=== PATIENT | male | born 1985 | race African-American/Black ===

== ENCOUNTER 2018-03-02 10:05 | Emergency (ER) | payer OTHER ==
[~2018-03-02] VITALS: Ht 185.4 cm; Wt 129.3 kg
[~2018-03-02 10:05] MED LIST: AZIT250T PO; METH4TAB2 PO
[2018-03-02 10:37] VITALS: BP 141/83
[2018-03-02] MEDS ORDERED: ALBUTEROL SULFATE 2.5 MG/3 ML NEBU. CONT NEB ONE (11:00)
[2018-03-02] MEDS ORDERED: predniSONE 10 MG TABLET PO ONE (11:00)
[2018-03-02] MEDS ORDERED: PRED50TA PO (11:02)
--- NOTE | 2018-03-02 11:02 | PHYS DOC ---
Past Medical History Past Medical History: Asthma Past Surgical History: No Surgical History Alcohol Use: Rarely Drug Use: None Adult General Chief Complaint Chief Complaint: ASTHMA HPI HPI Patient is a 32 year old male who presents to the emergency room with chief complaint of asthma. He is short of breath he has been so for the last 2 days he thinks the trigger his recent URI his boss was sick and now he has a sore throat and runny nose. last hospitalization 1 year ago never intubated Review of Systems Review of Systems Constitutional: Eyes: Denies change in visual acuity, redness, or eye pain [] HENT: Respiratory: Cardiovascular: No additional information not addressed in HPI [] GI: Denies abdominal pain, nausea, vomiting, bloody stools or diarrhea [] Musculoskeletal: Denies back pain or joint pain [] Integument: Denies rash or skin lesions [] Neurologic: Denies headache, focal weakness or sensory changes [] Endocrine: Denies polyuria or polydipsia [] All other systems were reviewed and found to be within normal limits, except as documented in this note. Current Medications Current Medications Current Medications Medications (Trade) Dose Ordered Sig/Harshad Start Time Stop Time Status Last Admin Dose Admin Albuterol Sulfate (Ventolin Neb Soln) 10 mg 1X ONCE 03/02/18 11:00 03/02/18 11:01 DC Albuterol/ Ipratropium (Duoneb) 3 ml 1X ONCE 03/02/18 11:30 03/02/18 11:31 DC 03/02/18 11:30 3 ML Prednisone (Prednisone) 50 mg 1X ONCE 03/02/18 11:00 03/02/18 11:01 DC 03/02/18 10:56 50 MG Allergies Allergies Allergies Coded Allergies Type Severity Reaction Last Updated Verified No Known Drug Allergies 02/11/18 No Physical Exam Physical Exam Constitutional: Well developed, well nourished, no acute distress, non-toxic appearance. [] HENT: Normocephalic, atraumatic, bilateral external ears normal, oropharynx moist, no oral exudates, nose normal. [] Eyes: PERRLA, EOMI, conjunctiva normal, no discharge. [] Neck: Normal range of motion, no tenderness, supple, no stridor. [] Cardiovascular:Heart rate regular rhythm, no murmur [] Lungs & Thorax: wheezing, speaking full sentences mild increase in resp effort. Abdomen: Bowel sounds normal, soft, no tenderness, no masses, no pulsatile masses. [] Skin: Warm, dry, no erythema, no rash. [] Back: No tenderness, no CVA tenderness. [] Extremities: No tenderness, no cyanosis, no clubbing, ROM intact, no edema. [] Neurologic: Alert and oriented X 3, normal motor function, normal sensory function, no focal deficits noted. [] Psychologic: Affect normal, judgement normal, mood normal. [] Current Patient Data Vital Signs Vital Signs Date Time Temp Pulse Resp B/P (MAP) Pulse Ox O2 Delivery O2 Flow Rate FiO2 03/02/18 11:30 Room Air 03/02/18 10:37 98.6 93 18 141/83 (102) 94 98.6 EKG EKG [] Radiology/Procedures Radiology/Procedures [] Impressions: MPRESSION: No acute cardiopulmonary process. Electronically signed by: Kallie Muir MD (03/02/2018 11:06 AM) [id number] Course & Med Decision Making Course & Med Decision Making Pertinent Labs and Imaging studies reviewed. (See chart for details) []asthma albuterol prednisone cxr pt is feeling better in the ER. wheeizng improved return precautions discussed Dragon Disclaimer Dragon Disclaimer This electronic medical record was generated, in whole or in part, using a voice recognition dictation system. Departure Departure Impression: Primary Impression: Asthma exacerbation Disposition: 01 HOME, SELF-CARE Condition: STABLE Referrals: NO PCP (PCP) Patient Instructions: Asthma, Acute Bronchospasm Scripts Albuterol Sulfate (PROAIR HFA INHALER) 8.5 Gm Hfa.aer.ad 1 PUFF INH PRN Q6HRS PRN for SHORTNESS OF BREATH, #1 INHALER 0 Refills Prov: CHAUNCEY ALVAREZ MD 03/02/18 Prednisone (PREDNISONE) 50 Mg Tablet 1 TAB PO DAILY, #5 TAB Prov: CHAUNCEY ALVAREZ MD 03/02/18 CHAUNCEY ALVAREZ MD Mar 02, 2018 11:02
--- NOTE | 2018-03-02 11:10 | RAD ---
Chest radiograph 03/02/2018 10:48 AM INDICATION: Shortness of breath, asthma COMPARISON: February 11, 2018 TECHNIQUE: Frontal view of the chest is provided. FINDINGS: The cardiomediastinal silhouette is within normal limits. There are no pleural effusions. There is no pulmonary vascular congestion. There is no pneumothorax. The lungs are clear. No significant osseous abnormality is identified. IMPRESSION: No acute cardiopulmonary process. Electronically signed by: Kallie Muir MD (03/02/2018 11:06 AM) [id number]
[2018-03-02] MEDS ORDERED: IPRATRPIUM/ALBUTEROL 0.5/2.5MG 3 ML NEBU. ONE (11:11)
[2018-03-02] MEDS ORDERED: IPRATRPIUM/ALBUTEROL 0.5/2.5MG 3 ML NEBU. NEB ONE ×2 (11:15→11:30)
[2018-03-02] MEDS ORDERED: ALBU2.5V8 INH (11:56)
== END 2018-03-02 12:15 | disposition home or self-care (01) ==
LOC: ER 10:05
DX: J45.901 Unspecified asthma with (acute) exacerbation (principal)
CPT/HCPCS: 71045; 94640; 99284; J7512; J7620

== ENCOUNTER 2018-03-29 07:59 | Emergency (ER) | payer OTHER ==
[~2018-03-29] VITALS: Ht 185.4 cm; Wt 127.0 kg
[~2018-03-29 07:59] MED LIST changes: +ALBU2.5V8 INH; +PRED50TA PO
[2018-03-29 08:06] VITALS: BP 164/94
[2018-03-29] MEDS ORDERED: DEXAMETHASONE 4 MG TABLET PO ONE (08:15)
[2018-03-29] MEDS ORDERED: IPRATRPIUM/ALBUTEROL 0.5/2.5MG 3 ML NEBU. NEB ONE (08:15)
[2018-03-29] MEDS ORDERED: IBUPROFEN 600 MG TABLET. PO ONE (08:15)
--- NOTE | 2018-03-29 08:20 | PHYS DOC ---
Past Medical History Past Medical History: Asthma Past Surgical History: No Surgical History Alcohol Use: Rarely Drug Use: None Adult General Chief Complaint Chief Complaint: Congestion HPI HPI Patient is a 32 year old male who presents with nasal congestion, body aches, cough, yellow mucus, vomiting with cough, one bout of diarrhea for one day. He denies throat pain or ear pain. States he is not taking any medications. Review of Systems Review of Systems Constitutional: Denies fever or chills [] Eyes: Denies change in visual acuity, redness, or eye pain [] HENT: nasal congestion or denies sore throat [] Respiratory: cough and shortness of breath [] Cardiovascular: No additional information not addressed in HPI [] GI: Denies abdominal pain, nausea. Cough causing vomiting, denies bloody stools or diarrhea [] : Denies dysuria or hematuria [] Musculoskeletal: Generalized body aches. Denies back pain or joint pain [] Integument: Denies rash or skin lesions [] Neurologic: Denies headache, focal weakness or sensory changes [] Endocrine: Denies polyuria or polydipsia [] All other systems were reviewed and found to be within normal limits, except as documented in this note. Current Medications Current Medications Current Medications Medications (Trade) Dose Ordered Sig/Harshad Start Time Stop Time Status Last Admin Dose Admin Albuterol/ Ipratropium (Duoneb) 3 ml 1X ONCE 03/29/18 08:15 03/29/18 08:16 DC 03/29/18 08:27 3 ML Dexamethasone (Decadron) 8 mg 1X ONCE 03/29/18 08:15 03/29/18 08:16 DC 03/29/18 08:33 8 MG Ibuprofen (Motrin) 600 mg 1X ONCE 03/29/18 08:15 03/29/18 08:16 DC 03/29/18 08:33 600 MG Allergies Allergies Allergies Coded Allergies Type Severity Reaction Last Updated Verified No Known Drug Allergies 02/11/18 No Physical Exam Physical Exam Constitutional: Well developed, well nourished, no acute distress, non-toxic appearance. [] HENT: Normocephalic, atraumatic, bilateral external ears normal, oropharynx moist, no oral exudates, nose normal. [] Eyes: PERRLA, EOMI, conjunctiva normal, no discharge. [] Neck: Normal range of motion, no tenderness, supple, no stridor. [] Cardiovascular:Heart rate regular rhythm, no murmur [] Lungs & Thorax: Bilateral breath sounds upper with expiratory wheezes and upper and lower with coarse inspiratory to auscultation [] Abdomen: Bowel sounds normal, soft, no tenderness, no masses, no pulsatile masses. [] Skin: Warm, dry, no erythema, no rash. [] Back: No tenderness, no CVA tenderness. [] Extremities: No tenderness, no cyanosis, no clubbing, ROM intact, no edema. [] Neurologic: Alert and oriented X 3, normal motor function, normal sensory function, no focal deficits noted. [] Psychologic: Affect normal, judgement normal, mood normal. [] Current Patient Data Vital Signs Vital Signs Date Time Temp Pulse Resp B/P (MAP) Pulse Ox O2 Delivery O2 Flow Rate FiO2 03/29/18 09:01 115 96 Room Air 03/29/18 08:06 100.6 20 164/94 (117) 100.6 Lab Values Laboratory Tests Test 03/29/18 08:10 Influenza Type A Antigen Negative (NEGATIVE) Influenza Type B Antigen Negative (NEGATIVE) Group A Streptococcus Rapid Negative (NEGATIVE) EKG EKG [] Radiology/Procedures Radiology/Procedures Chest xray Impressions: [facility] [address] [place], [place] [id number] IMAGING REPORT Signed PATIENT: CARLOS DE PAZ ACCOUNT: [id number] : 1985 LOCATION: ER AGE: 32 SEX: M EXAM STATUS: REG ER ORD. PHYSICIAN: WASHINGTON FISHER APRN REASON: chest congestion PROCEDURE: CHEST PA & LATERAL CHEST PA LATERAL CLINICAL INDICATION: chest congestion, COMPARISON: 03/02/2018 FINDINGS: Heart is normal in size. Central bilateral mild peribronchial wall thickening is seen. No focal consolidation. No pneumothorax or pleural effusion. Visualized bony thorax is within normal limits. IMPRESSION: Mild bronchitis. Electronically signed by: Jose Hyman DO (03/29/2018 8:33 AM) [id number] DICTATED and SIGNED BY: JOSE HYMAN DO DATE: 03/29/18 0832 Course & Med Decision Making Course & Med Decision Making Patient is a 32 year old male who presents with nasal congestion, body aches, cough, yellow mucus, vomiting with cough, one bout of diarrhea for one day. He denies throat pain or ear pain. States he is not taking any medications. Alert and oriented. Abdomen soft and nontender. Denies abdominal pain or dysuria. States he does have shortness of breath but also has asthma. Patient states he does have inhalers to try and use but is not helping. Throat is reddened, not swollen, there is one white patch left upper throat. Bilateral Tympanic membranes are pearly white. Speaks in full clear sentences. Upper and lower bilateral lungs have expiratory wheezes with inspiratory coarse sounds. Febrile at 100.6. Is given a DuoNeb, ibuprofen, dexamethasone in the ED. Patient is in no respiratory distress. Patient will be discharged with antibiotic and a prescription for an albuterol inhaler. Patient is to follow-up with his primary care doctor for worsening of symptoms. Patient is to drink plenty of fluids take [id number] cold medicines and Tylenol ibuprofen for fever pain. Chest x-ray shows mild bronchitis. Strep is negative. Dragon Disclaimer Dragon Disclaimer This electronic medical record was generated, in whole or in part, using a voice recognition dictation system. Departure Departure Impression: Primary Impression: Bronchitis Disposition: 01 HOME, SELF-CARE Condition: STABLE Referrals: NO PCP (PCP) Patient Instructions: Acute Bronchitis Additional Instructions: FOLLOW UP WITH PRIMARY CARE PROVIDER. TAKE MEDICATIONS PRESCRIBED. YOU CAN ALSO TRY OVER THE COUNTER COLD MEDICATIONS. Scripts Albuterol Sulfate (ALBUTEROL SULFATE NEB SOLN) 2.5 Mg/3 Ml Vial.neb 1 VIAL NEB PRN Q4HRS, #50 VIAL Prov: WASHINGTON FISHER RESTAURANT INSPECTOR 03/29/18 Prednisone (PREDNISONE) 20 Mg Tablet 1 TAB PO DAILY for 3 Days, #3 TAB START TAKING ON 04/01/18. Prov: WASHINGTON FISHER RESTAURANT INSPECTOR 03/29/18 Albuterol Sulfate (PROAIR HFA INHALER) 8.5 Gm Hfa.aer.ad 1 PUFF INH PRN Q6HRS PRN for SHORTNESS OF BREATH, #1 INHALER 0 Refills Prov: WASHINGTON FISHER APRN 03/29/18 Azithromycin (AZITHROMYCIN TABLET) 250 Mg Tablet 1 PKG PO UD, #6 TAB Prov: WASHINGTON FISHER APRN 03/29/18 Attending Signature Attending Signature I have reviewed the PA/FOOD SERVICE CLERK's note and plan of care. I was available for consultation as needed during the patient's visit in the emergency department. I agree with the clinical impression, plan, and disposition. WASHINGTON FISHER APRN Mar 29, 2018 08:20 MARCELLE MAST DO Mar 30, 2018 09:02
[2018-03-29 08:38] LABS: INFLUENZA A PATIENT NEGATIVE (NEGATIVE); INFLUENZA B PATIENT NEGATIVE (NEGATIVE)
--- NOTE | 2018-03-29 08:38 | RAD ---
CHEST PA LATERAL CLINICAL INDICATION: chest congestion, COMPARISON: 03/02/2018 FINDINGS: Heart is normal in size. Central bilateral mild peribronchial wall thickening is seen. No focal consolidation. No pneumothorax or pleural effusion. Visualized bony thorax is within normal limits. IMPRESSION: Mild bronchitis. Electronically signed by: Jose Hyman DO (03/29/2018 8:33 AM) [id number]
[2018-03-29] MEDS ORDERED: ALBU2.5V8 INH (08:45)
[2018-03-29] MEDS ORDERED: AZIT250T6 PO (08:45)
[2018-03-29] MEDS ORDERED: PRED20TA PO (08:45)
[2018-03-29] MEDS ORDERED: ALBU2.5V5 NEB (08:56)
== END 2018-03-29 09:02 | disposition home or self-care (01) ==
LOC: ER 07:59
DX: J40 Bronchitis, not specified as acute or chronic (principal)
CPT/HCPCS: 71046; 87804; 87880; 94640; 99284; J7620; J8540